=== PATIENT | female | born 2000 | race Caucasian/White ===

== ENCOUNTER 2018-11-10 09:56 | Emergency (ER) | payer BC, OTHER ==
[~2018-11-10] VITALS: Ht 167.6 cm; Wt 51.5 kg
[2018-11-10 10:02] VITALS: BP 134/77; PULSE 71; RESP 20; Ht 167.6 cm; Wt 51.5 kg
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
[2018-11-10] MEDS ORDERED: ACET325T33 PO (10:50)
== END 2018-11-10 11:43 | disposition home or self-care (01) ==
LOC: FTE 09:56
DX: S01.511A Laceration without foreign body of lip, initial encounter (principal); V96 Accident to nonpowered aircraft causing injury to occupant; Y92.9 Unspecified place or not applicable